=== PATIENT | male | born 1980 | race Caucasian/White ===

== ENCOUNTER 2016-11-10 01:13 | Emergency (ER) | payer SELFPAY | END 2016-11-10 03:55 | disposition home or self-care (01) | LOC: ER1 01:13 | DX: S01.111A Laceration without foreign body of right eyelid and periocular area, initial encounter (principal); S50.01XA Contusion of right elbow, initial encounter; F17.210 Nicotine dependence, cigarettes, uncomplicated; Z23 Encounter for immunization; X58.XXXA Exposure to other specified factors, initial encounter | CPT/HCPCS: 70450; 70486; 72125; 73080; 73090; 90471; 90715; 99283 ==